=== PATIENT | female | born 1955 | race Caucasian/White ===

== ENCOUNTER 2020-12-04 14:48 | Outpatient (REF) | payer MEDICARE, MEDICAID, SELFPAY ==
--- NOTE | ~2020-12-04 | MM_ITS ---
EXAMINATION: MM SCREENING DIGITAL BREAST TOMOSYNTHESIS, BILATERAL CLINICAL INFORMATION: Screening. Asymptomatic. Benign left excisional biopsy 2012. The lifetime risk of breast cancer based on the Tyrer-Cuzick Model is 3%. COMPARISON: Mammography: 09/05/2019, 08/30/2018, 07/25/2017 TECHNIQUE: Digital breast tomosynthesis is performed in both the craniocaudal and mediolateral oblique views along with computer-aided detection (CAD). Synthesized 2D images are generated from the tomosynthesis. FINDINGS: The breasts are heterogeneously dense, which may obscure small masses (ACR BI-RADS breast composition Category c). Parenchymal pattern is similar to prior studies. There is no developing density or interval mass or architectural abnormality. Again, there is old scarring from prior excisional biopsy posterior upper left breast. There are no abnormal calcifications. The axilla and skin contours are unremarkable. No significant changes. MM/MM tomosynthesis screening BI IMPRESSION: No significant changes from prior studies. ASSESSMENT: BI-RADS 2: Benign RECOMMENDATION: Routine annual mammography screening. This patient's information was entered into a reminder system with a target due date for their next mammogram.
== END 2020-12-04 14:49 | disposition home or self-care (01) ==
LOC: HO.MAMMO 14:48
PROVIDERS: Visit Provider Nurse Practitioner Family
DX: Z12.31 Encounter for screening mammogram for malignant neoplasm of breast (principal)
CPT/HCPCS: 77063; 77067

== ENCOUNTER 2021-07-22 09:11 | Outpatient (REF) | payer MEDICARE, MEDICAID, SELFPAY ==
--- NOTE | 2021-07-22 16:06 | MHC.AU.AHA ---
Adult Audiological Evaluation Date of Visit: 07/22/21 Coating Line Worker Used: Mauritian- In Person Reason for Appointment: Audiological re-evaluation to monitor the status of Ms. Cleaning's hearing loss. She has a known bilateral hearing loss and uses hearing aids binaurally. She notes that the hearing aids have been too loud and she finds them bothersome. She denies any significant changes to her hearing or medical history. [place] [facility] [place] Moderately severe to profound sensorineural hearing loss bilaterally. Medical History: Medical History: Hyperlipidemia, prediabetes, osteopenia Medication List: Calcium, Vitamin D3, Fluticasone propionate, Loratadine 10 mg, Crestor 10 mg, acetaminophen 500 mg, guaifenesin/dextromethorphan Hearing Instrument History- Right Ear: Guest History Clerk: [employer] Model: Eloxx0-SP [employer] Serial Number: [id number] Battery Size: 13 Repair Warranty: 02/23/2019 Loss and Damage Warranty: 02/23/2019 Dispensed By: [facility] Date of Fittin12/15/2016 Hearing Instrument History- Left Ear: Guest History Clerk: [employer] Model: Eloxx0-SP [employer] Serial Number: [id number] Battery Size: 13 Warranty: 02/23/2019 Loss and Damage Warranty: 02/23/2019 Dispensed By: [facility] Date of Fittin12/15/2016 Otoscopy: Right Ear: Unremarkable Left Ear: Unremarkable Hearing Evaluation: Transducer(s) Used: Insert Earphones, Bone Conduction Method: Conventional Audiometry Stimuli Used: Pure Tones Right Ear: Description of Hearing: Moderately-severe to profound mixed hearing loss from 125-8000 Hz. Left Ear: Description of Hearing: Moderately-severe to profound mixed hearing loss from 125-8000 Hz. Speech Recognition Threshold (SRT): Method Used: Recorded Lists Stimuli Used: Mauritian Trisyllable Words Right Ear: 85 dBHL Left Ear: 75 dBHL Word Discrimination: Method: Recorded Lists Word Lists Used: Lista Bisil?bica (Mauritian) Right Ear: 92% at 100 dBHL Left Ear: 44% at 100 dBHL Comparison: Compared to the most recent evaluation: Hearing is stable. Recommendations: Audiological re-evaluation in one year. Hearing aid maintenance performed today. Hearing aid(s) reprogrammed with updated test results. Ms. Cleaning inquired about getting new hearing aids. Advised that she is not eligible for new hearing aids until December 2021. At that time she is welcome to return for a hearing aid consultation to discuss new hearing aid options. Diagnosis: Primary Diagnosis: H90.6 Mixed Hearing Loss, Bilateral Services Performed: Comprehensive Audiological Evaluation (CPT 50309) Signature: Provider: Semaj Vera, CCC-A
== END 2021-07-22 09:12 | disposition home or self-care (01) ==
LOC: HO.SH 09:11
PROVIDERS: Visit Provider Nurse Practitioner Family
DX: H90.6 Mixed conductive and sensorineural hearing loss, bilateral (principal)
CPT/HCPCS: 92557; 92593; V5266

== ENCOUNTER 2021-12-10 12:03 | Outpatient (REF) | payer MEDICARE, MEDICAID, SELFPAY ==
--- NOTE | ~2021-12-10 | MM_ITS ---
EXAMINATION: MM SCREENING DIGITAL BREAST TOMOSYNTHESIS, BILATERAL CLINICAL INFORMATION: Screening. Asymptomatic. Status post benign excisional biopsy of the left breast. The lifetime risk of breast cancer based on the Tyrer-Cuzick Model is 3.5%. COMPARISON: Mammography: April 05, 2021 and studies dating back to August 11, 2012 TECHNIQUE: Digital breast tomosynthesis is performed in both the craniocaudal and mediolateral oblique views along with computer-aided detection (CAD). Synthesized 2D images are generated from the tomosynthesis. FINDINGS: The breasts are heterogeneously dense, which may obscure small masses (ACR BI-RADS breast composition Category c). There are no new significant masses, abnormal calcifications, or other abnormalities. Stable architectural distortion about the left breast from previous benign biopsy again noted. MM/MM tomosynthesis screening BI IMPRESSION: There are no significant changes from prior study. ASSESSMENT: BI-RADS 2: Benign RECOMMENDATION: Routine annual mammography screening. This patient's information was entered into a reminder system with a target due date for their next mammogram.
== END 2021-12-10 12:04 | disposition home or self-care (01) ==
LOC: HO.MAMMO 12:03
PROVIDERS: Visit Provider Nurse Practitioner Family
DX: Z12.31 Encounter for screening mammogram for malignant neoplasm of breast (principal)
CPT/HCPCS: 77063; 77067

== ENCOUNTER 2022-12-16 11:31 | Outpatient (REF) | payer MEDICARE, MEDICAID, SELFPAY ==
--- NOTE | ~2022-12-16 | MM_ITS ---
EXAMINATION: MM SCREENING DIGITAL BREAST TOMOSYNTHESIS, BILATERAL CLINICAL INFORMATION: Screening. Asymptomatic. Prior benign left excisional biopsy, 2013. The lifetime risk of breast cancer based on the Tyrer-Cuzick Model is 4%. COMPARISON: Multiple prior studies, including most recent 12/10/2021. TECHNIQUE: Digital breast tomosynthesis is performed in both the craniocaudal and mediolateral oblique views along with computer-aided detection (CAD). Synthesized 2D images are generated from the tomosynthesis. FINDINGS: The breasts are heterogeneously dense, which may obscure small masses (ACR BI-RADS breast composition Category c). Parenchymal pattern is similar to prior studies. There is old postsurgical scarring posterior upper left breast similar to prior studies. Scattered bilateral minor asymmetries are stable. No focal mass or architectural abnormality or developing density. No abnormal calcifications. The axilla and skin contours are unremarkable. MM/MM tomosynthesis screening BI IMPRESSION: No mammographic evidence of malignancy. ASSESSMENT: BI-RADS 2: Benign RECOMMENDATION: Routine annual mammography screening. This patient's information was entered into a reminder system with a target due date for their next mammogram.
== END 2022-12-16 11:32 | disposition home or self-care (01) ==
LOC: HO.MAMMO 11:31
PROVIDERS: Visit Provider Nurse Practitioner Family
DX: Z12.31 Encounter for screening mammogram for malignant neoplasm of breast (principal)
CPT/HCPCS: 77063; 77067

== ENCOUNTER 2023-04-12 10:15 | Outpatient (REF) | payer MEDICARE, MEDICAID, SELFPAY ==
[2023-04-12 11:41] LABS: MANUAL DIFF FLAG NO
[2023-04-12 11:57] LABS: Basophils Absolute Auto 0.1 X10*3/uL (0.0-0.2); Basophils Percent Auto 0.9 % (0-2); Eosinophils Absolute Auto 0.1 X10*3/uL (0.0-0.4); Eosinophils Percent Auto 2.5 % (0-4); Hematocrit 39.2 % (37.0-47.0); Hemoglobin 12.4 g/dl (12.0-16.0); Imm Gran Abs Auto 0.01 X10*3/uL (0.00-0.03); Imm Gran Pct Auto 0.2 % (0.0-0.4); Lymphocytes Absolute Auto 2.6 X10*3/uL (1.2-4.9); Mean Corpuscular HGB Conc 31.6 g/dl (31.0-35.0); Mean Corpuscular Hemoglobin 31.9 pg (27.0-33.0); Mean Corpuscular Volume 100.8 fL (80.0-98.0); Mean Platelet Volume 10.4 fL (9.4-12.3); Monocytes Absolute Auto 0.3 X10*3/uL (0.1-1.2); Monocytes Percent Auto 5.5 % (2-11); Neutrophils Absolute Auto 2.6 x10*3/uL (2.0-8.3); Neutrophils Percent Auto 45.9 % (45-73); Platelet Count 249 X10*3/uL (160-400); Red Blood Count 3.89 X10*6/uL (4.20-5.50); White Blood Count 5.7 X10*3/uL (4.8-10.8)
[2023-04-12 12:07] LABS: Estimated Average Glucose 120 mg/dL; Hemoglobin A1c % 5.8 % (<6.0)
[2023-04-12 12:24] LABS: Alanine Aminotransferase 41 U/L (0-31); Albumin Level 4.4 g/dL (3.5-5.0); Alkaline Phosphatase 94 U/L (39-117); Anion Gap 11 (12-20); Aspartate Amino Transferase 41 U/L (5-31); Bilirubin Total 0.5 mg/dL (0.0-1.0); Blood Urea Nitrogen 9 mg/dL (9-16); Calcium 9.8 mg/dL (8.4-10.2); Carbon Dioxide 28 mmol/L (22-29); Chloride 107 mmol/L (96-108); Cholesterol 256 mg/dL (<200); Estimated Glomerular Filt Rate > 60; Glucose Random 104 mg/dL (60-115); HDL Cholesterol 64 mg/dL (>40); LDL Cholesterol Calculated 168 mg/dL (<100); Potassium 4.1 mmol/L (3.3-5.1); Sodium 142 mmol/L (135-145); Total Protein 8.7 g/dL (6.5-8.0); Triglycerides 124 mg/dL (<150)
[2023-04-12 12:38] LABS: Syphilis Screen Nonreactive (Nonreactive)
[2023-04-12 12:42] LABS: TSH reflex Free T4 1.44 uIU/mL (0.32-4.0)
[2023-04-12 12:49] LABS: Folate 9.3 ng/mL (> or = 4.0); Vitamin B12 617 pg/mL (200-900)
[2023-04-12 13:04] LABS: Creatinine Urine 171.65 mg/dL; Microalbum/Creatinine Ratio Ur 23.8 ug/mg cr (<30)
[2023-04-12 13:38] LABS: CT PCR NOT DETECTED (Not Detect.); NG PCR NOT DETECTED (Not Detect.)
[2023-04-13 08:28] LABS: ~HepC Num1 0.14 S/CO (0.00-0.79); ~Hepatitis C Antibody Nonreactive (Nonreactive)
[2023-04-13 08:31] LABS: HBS Num1 653.75 mIU/mL (0-7.99); HBsAGNum1 0.41 S/CO (0.00-0.99); HIV AB/AG Nonreactive (Nonreactive); HIV Num 1 0.06 S/CO (0.00-0.99); Hepatitis B Core Antibody Nonreactive (Nonreactive); Hepatitis B Surface Antigen Negative (Negative); ~Hepatitis B Surface Antibody REACTIVE (Nonreactive)
[2023-04-16 11:54] LABS: VITAMIN D (1,25 OH) D3 52 pg/mL; Vit D (1,25-Dihydroxy) Total 52 pg/mL (18-72); Vitamin D (1,25 OH) D2 <8 pg/mL
== END 2023-04-12 10:16 | disposition home or self-care (01) ==
LOC: HO.HHCL 10:15
PROVIDERS: Visit Provider Student in an Organized Health Care Education/Training Program
DX: Z00.00 Encounter for general adult medical examination without abnormal findings (principal); M85.80 Other specified disorders of bone density and structure, unspecified site; E55.9 Vitamin D deficiency, unspecified; Z20.2 Contact with and (suspected) exposure to infections with a predominantly sexual mode of transmission; R73.03 Prediabetes; E78.5 Hyperlipidemia, unspecified; Z13.29 Encounter for screening for other suspected endocrine disorder; Z11.59 Encounter for screening for other viral diseases; Z72.89 Other problems related to lifestyle
CPT/HCPCS: 0353U; 80053; 80061; 82043; 82550; 82607; 82652; 82746; 83036; 84443; 85025; 86704; 86706; 86780; 86803; 87340; 87389

== ENCOUNTER 2023-04-14 19:22 | Outpatient (REF) | payer MEDICARE, MEDICAID, SELFPAY ==
[2023-04-22 07:59] LABS: HPV 16 RNA NOT DETECTED (NOT DETECTED); HPV mRNA E6/E7 rflx Detected (Not Detected)
== END 2023-04-14 19:23 | disposition home or self-care (01) ==
LOC: HO.HHCLNP 19:22
PROVIDERS: Visit Provider Advanced Practice Midwife
DX: Z01.419 Encounter for gynecological examination (general) (routine) without abnormal findings (principal)
CPT/HCPCS: 87624; 87625; 88142

== ENCOUNTER 2023-05-11 13:24 | Outpatient (REF) | payer MEDICARE, MEDICAID, SELFPAY ==
--- NOTE | ~2023-05-11 | US_ITS ---
EXAMINATION: ULTRASOUND PELVIC, COMPLETE CLINICAL INFORMATION: Enlarged ovarian veins concern for pelvic congestion. Monitor finding. COMPARISON: CT abdomen and pelvis 08/22/2019, pelvic ultrasound 08/02/2016. TECHNIQUE: Pelvic ultrasound was performed using transvaginal and transabdominal technique without spectral doppler. FINDINGS: The uterus is of normal size and echogenicity measuring 7.6 x 2.1 x 4.9 cm. The uterus appears heterogeneous. A regular homogeneous endometrium is identified measuring 0.3 cm in thickness. The right ovary measures 1.1 x 1.6 x 1.6 cm, volume 1.5 mL. The right ovary appears normal. The left ovary is not seen. Prominent parametrial veins bilaterally. 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 There is no pelvic free fluid. 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 These findings can be seen in asymptomatic women as well as women with signs and symptoms of pelvic congestion syndrome. There has been no significant change compared to prior.
== END 2023-05-11 13:25 | disposition home or self-care (01) ==
LOC: HO.US 13:24
PROVIDERS: PCP Student in an Organized Health Care Education/Training Program; Visit Provider Student in an Organized Health Care Education/Training Program
DX: R93.89 Abnormal findings on diagnostic imaging of other specified body structures (principal); I86.8 Varicose veins of other specified sites
CPT/HCPCS: 76830; 76856

== ENCOUNTER 2023-06-09 16:10 | Outpatient (REF) | payer MEDICARE, MEDICAID, SELFPAY | END 2023-06-09 16:11 | disposition home or self-care (01) | LOC: HO.HHCLNP 16:10 | PROVIDERS: Visit Provider Advanced Practice Midwife | DX: R87.615 Unsatisfactory cytologic smear of cervix (principal); R87.810 Cervical high risk human papillomavirus (HPV) DNA test positive | CPT/HCPCS: 88142 ==

== ENCOUNTER 2023-06-22 09:21 | Outpatient (REF) | payer MEDICARE, MEDICAID, SELFPAY ==
--- NOTE | ~2023-06-22 | XR_ITS ---
EXAMINATION: XR CHEST CLINICAL INFORMATION: Bronchitis for 2 to 3 weeks with ongoing cough with rhonchi COMPARISON: 10/22/2019 TECHNIQUE: 2 views of the chest were obtained. FINDINGS: No significant abnormality is noted involving the heart, lungs, mediastinum, bony thorax or soft tissues. Minimal left basilar atelectasis. XR/XR chest 2V IMPRESSION: No acute intrathoracic disease.
== END 2023-06-22 09:22 | disposition home or self-care (01) ==
LOC: HO.HHCX 09:21
PROVIDERS: Visit Provider Student in an Organized Health Care Education/Training Program
DX: J40 Bronchitis, not specified as acute or chronic (principal)
CPT/HCPCS: 71046

== ENCOUNTER 2023-06-23 13:27 | Outpatient (REF) | payer MEDICARE, MEDICAID, SELFPAY ==
--- NOTE | 2023-06-27 09:00 | MHC.AU.MED ---
Medical Clearance for Hearing Instrumentation Date: 06/23/23 Patient Name: Suzanne Cleaning Date of : 1955 Primary Care Provider: Ignacia Butt MD We have seen your patient on 06/23/23 and have determined that they are a candidate for amplification (See accompanying report). Specifically, they would benefit from: Hearing aid use in both ears There is a statute that addresses Medical Evaluation Requirements prior to fitting a patient with a hearing aid. According to [place] statute 265 CMR:6.03(1), (a) General. Except as provided in 265 CMR 6.03(1)(b), a hearing dog trainer shall not sell a hearing aid unless the prospective user has presented to the hearing dog trainer a written statement signed by a licensed physician that states that the patient's hearing loss has been medically evaluated and the patient may be considered a candidate for a hearing aid. The medical evaluation must have taken place within the preceding six months. Please note: Due to the [place] Statute referenced above, we cannot accept a signature other than that of a licensed physician. WAREHOUSE HANDLER and PA signatures cannot be accepted. I am in agreement with the above recommendation. There is no medical contraindication for hearing instrumentation. Physician Signature Date Physician Name (Printed)
--- NOTE | 2023-06-27 09:12 | MHC.AU.HA3 ---
Hearing Instrument Follow-Up- Binaural Date of Visit: 06/23/23 Injection Mold Tooling Technician Used: Maltese- In Person Right Ear: Bernardo, Model, Color, Serial Number: Blanca Vela B50-SP SERINAE SN: [id number] Color: Sand Beige Hospital Account Liaison Repair Warranty: 02/23/2019 Hospital Account Liaison Loss and Damage Warranty: 02/23/2019 Battery Size: 13 Earmold/Dome/CShell/SlimTip:Microsonic Unfmm-r-cfoy II full shell Dispensed By: [facility] Date of Fittin12/15/2016 Left Ear: Bernardo, Model, Color, Serial Number: Blanca Whitley0-SP SERINAE SN: [id number] Color: Sand Beige Hospital Account Liaison Repair Warranty: 02/23/2019 Hospital Account Liaison Loss and Damage Warranty: 02/23/2019 Battery Size: 13 Earmold/Dome/CShell/SlimTip: Microsonic Dgxad-y-smmt II full shell Dispensed By: [facility] Date of Fittin12/15/2016 Follow-Up Summary: Suzanne returned for routine hearing aid maintenance following updated hearing test. Cleaned both hearing aids and ear molds. Listening check demonstrated the hearing aids are functioning appropriately. Tubing still clean and flexible - Did not need to be changed. Suzanne had some difficulty inserting the helix portion of the ear mold. Did not make programming changes as hearing thresholds are stable. However, discussed cochlear implant due to significant decrease in speech discrimination ability. Suzanne is not interested in a CI at this time. She opted to pursue new hearing aids due to age of current pair with realistic expectations given limitations of hearing aids. Recommendations: Hearing instrument follow-up or maintenance as needed. Please contact our clinic with any questions or concerns. Diagnosis Code(s): Primary Diagnosis: H90.3 Bilateral Sensorineural Hearing Loss Signature: Provider: Karyn Pierson, [facility]
--- NOTE | 2023-06-27 09:53 | MHC.AU.HA1 ---
Hearing Aid Evaluation Date of Visit: 06/23/23 State Trooper Used: Khmer- In Person Historical Information: Description of Hearing: Severe to profound sensorineural hearing loss, bilaterally Current personal amplification information: Phonak Dane B50-SP BTEs fit December 2016 Summary: Suzanne is ready to pursue new hearing aids due to the age of her current pair. Discussed a cochlear implant due to poor speech discrimination ability; however, Suzanne is not interested in a CI at this time. Explained limitations of hearing aids given severity of hearing loss and poor speech discrimination. Will stay with same crop picker and style of hearing aid in ultra power version with larger battery. Will change to half shell ear mold due to difficulty inserting helix portion of current full shell. Hearing Aid Prescription: Based on the individual?s shared listening needs, communication environments, dexterity, desire for connectivity, and personal preferences, the following prescription for amplification has been made: Right ear: Make, Model, Color: Phonak Carmen L70-UP Color: Sand Beige Battery Size: 675 Type of Earmold/Dome/CShell/SlimTip: Microsonic M35 half shell Left ear: Left ear prescription to be same as Right Hearing Aid above: Make, Model, Color: Phonak Carmen L70-UP Color: Sand Beige Battery Size: 675 Type of Earmold/Dome/CShell/SlimTip: Microsonic M35 half shell Plan of Care: Patient wishes to purchase hearing aids as prescribed Action Taken/Action Needed: Earmold Impressions Taken without incident (in hold drawer). Medical Clearance to be requested from PCP/ENT. Hearing Instrument Fitting to be scheduled when materials arriv Primary Diagnosis: H90.3 Bilateral Sensorineural Hearing Loss Signature: Provider: Karyn Pierson, [facility]
== END 2023-06-23 13:28 | disposition home or self-care (01) ==
LOC: HO.SH 13:27
PROVIDERS: Visit Provider Student in an Organized Health Care Education/Training Program
DX: Z01.118 Encounter for examination of ears and hearing with other abnormal findings (principal); Z46.1 Encounter for fitting and adjustment of hearing aid; H90.3 Sensorineural hearing loss, bilateral
CPT/HCPCS: 92557; 92591; 92593; 99499; V5275

== ENCOUNTER 2023-08-16 10:20 | Outpatient (REF) | payer MEDICARE, MEDICAID, SELFPAY ==
[2023-08-16 11:05] LABS: MANUAL DIFF FLAG NO
[2023-08-16 11:07] LABS: Basophils Absolute Auto 0.1 X10*3/uL (0.0-0.2); Basophils Percent Auto 0.8 % (0-2); Eosinophils Absolute Auto 0.2 X10*3/uL (0.0-0.4); Eosinophils Percent Auto 2.8 % (0-4); Hematocrit 38.9 % (37.0-47.0); Hemoglobin 12.6 g/dl (12.0-16.0); Lymphocytes Absolute Auto 2.6 X10*3/uL (1.2-4.9); Lymphocytes Percent Auto 42.7 % (20-40); Mean Corpuscular HGB Conc 32.4 g/dl (31.0-35.0); Mean Corpuscular Volume 98.7 fL (80.0-98.0); Monocytes Absolute Auto 0.3 X10*3/uL (0.1-1.2); Monocytes Percent Auto 5.2 % (2-11); Neutrophils Percent Auto 48.5 % (45-73); Platelet Count 215 X10*3/uL (160-400); Red Blood Count 3.94 X10*6/uL (4.20-5.50); Red Cell Distribution Width 12.9 % (11.0-16.0); White Blood Count 6.2 X10*3/uL (4.8-10.8)
[2023-08-16 12:14] LABS: Alanine Aminotransferase 38 U/L (0-31); Albumin Level 4.6 g/dL (3.5-5.0); Alkaline Phosphatase 101 U/L (39-117); Anion Gap 14 (12-20); Aspartate Amino Transferase 36 U/L (5-31); Bilirubin Total 0.5 mg/dL (0.0-1.0); Blood Urea Nitrogen 6 mg/dL (9-16); Calcium 9.9 mg/dL (8.4-10.2); Carbon Dioxide 27 mmol/L (22-29); Chloride 107 mmol/L (96-108); Cholesterol 179 mg/dL (<200); Estimated Glomerular Filt Rate > 60; Glucose Random 102 mg/dL (60-115); HDL Cholesterol 64 mg/dL (>40); LDL Cholesterol Calculated 94 mg/dL (<100); Potassium 3.7 mmol/L (3.3-5.1); Sodium 144 mmol/L (135-145); Total Protein 8.6 g/dL (6.5-8.0); Triglycerides 105 mg/dL (<150)
== END 2023-08-16 10:21 | disposition home or self-care (01) ==
LOC: HO.HHCL 10:20
PROVIDERS: Visit Provider Student in an Organized Health Care Education/Training Program
DX: R74.8 Abnormal levels of other serum enzymes (principal); E78.5 Hyperlipidemia, unspecified
CPT/HCPCS: 36415; 80053; 80061; 82550; 85025

== ENCOUNTER 2023-08-19 15:11 | Outpatient (REF) | payer MEDICARE, MEDICAID, SELFPAY ==
--- NOTE | 2023-08-19 15:47 | MHC.AU.HA2 ---
Hearing Instrument Fitting- Adult- Binaural Date of Visit: 08/19/23 Hearing Instruments Dispensed: Right Ear: Make, Model, Color, Serial Number: Blanca Morales L70-UP SN: [id number] Color: Sand Beige [employer] Repair Warranty: 09/28/2026 [employer] Loss and Damage Warranty: 09/28/2026 [employer] Service Plan: 08/19/2024 Battery Size: 675 Earmold/Dome/CShell/SlimTip: Microsonic M35 half shell Left Ear: Make, Model, Color, Serial Number: Blanca Morales L70-UP SN: [id number] Color: Sand Beige [employer] Repair Warranty: 09/28/2026 [employer] Loss and Damage Warranty: 09/28/2026 [employer] Service Plan: 08/19/2024 Battery Size: 675 Earmold/Dome/CShell/SlimTip: Microsonic M35 half shell Summary of Fitting: Ran feedback analyzer and real ear measures. Good match to target until 2 kHz, otherwise limited by feedback curve >2 kHz. Increased overall gain in right hearing aid slightly due to perceived balance. Reviewed care and use including changing battery, turning on/off, and volume control use. As a previous hearing aid user, Suzanne was familiar with general maintenance. Suzanne has her old hearing aids and ear molds to keep as back up. Recommendations: A hearing instrument follow-up was scheduled. Diagnosis Code(s): Primary Diagnosis: H90.3 Bilateral Sensorineural Hearing Loss Signature: Provider: Karyn Pierson, [facility]
== END 2023-08-19 15:12 | disposition home or self-care (01) ==
LOC: HO.HAP 15:11
PROVIDERS: Visit Provider Student in an Organized Health Care Education/Training Program
DX: Z46.1 Encounter for fitting and adjustment of hearing aid (principal); H90.3 Sensorineural hearing loss, bilateral
CPT/HCPCS: V5011; V5020; V5160; V5261; V5264; V5266

== ENCOUNTER 2023-09-02 13:08 | Outpatient (REF) | payer MEDICARE, MEDICAID, SELFPAY ==
--- NOTE | 2023-09-05 08:03 | MHC.AU.HA3 ---
Hearing Instrument Follow-Up- Binaural Date of Visit: 09/02/23 Right Ear: Bernardo, Model, Color, Serial Number: Blanca Morales L70-UP SN: [id number] Color: Sand Beige [employer] Worker Repair Warranty: 09/28/2026 [employer] Worker Loss and Damage Warranty: 09/28/2026 [facility] Service Plan: 08/19/2024 Battery Size: 675 Earmold/Dome/CShell/SlimTip:Microsonic M35 half shell Dispensed By: [facility] Date of Fittin08/19/2023 Left Ear: Bernardo, Model, Color, Serial Number: Blanca Morales L70-UP SN: [id number] Color: Sand Beige [employer] Worker Repair Warranty: 09/28/2026 [employer] Worker Loss and Damage Warranty: 09/28/2026 [facility] Service Plan: 08/19/2024 Battery Size: 675 Earmold/Dome/CShell/SlimTip: Microsonic M35 half shell Dispensed By: [facility] Date of Fittin08/19/2023 Follow-Up Summary: Suzanne reported that overall she is doing well with the hearing aids. She had no questions/concerns at this time. Data logging showed about 3.5 hours per day on right hearing aid and <1 hour per day on left hearing aid. Tried to inquire about reason not using left hearing aid; however, Suzanne did not have a specific reason. Also difficult to obtain detailed description of sound quality. She did not want programming adjustments, ear mold is comfortable, no feedback, etc. Encouraged more consistent use. Advised of need for periodic tubing changes. Recommendations: Hearing instrument maintenance in 6 months, or sooner if needed. Please contact our clinic with any questions or concerns. Diagnosis Code(s): Primary Diagnosis: H90.3 Bilateral Sensorineural Hearing Loss Signature: Provider: Karyn Pierson, [facility]
== END 2023-09-02 13:09 | disposition home or self-care (01) ==
LOC: HO.HAP 13:08
PROVIDERS: Visit Provider Student in an Organized Health Care Education/Training Program
DX: Z13.89 Encounter for screening for other disorder (principal)

== ENCOUNTER → 2023-12-22 10:30 | Outpatient (BNV) | payer MEDICARE, MEDICAID, SELFPAY | PROVIDERS: PCP Student in an Organized Health Care Education/Training Program; Visit Provider Radiology Diagnostic Radiology | DX: Z12.31 Encounter for screening mammogram for malignant neoplasm of breast (principal) | CPT/HCPCS: 77063; 77067 ==

== ENCOUNTER 2023-12-22 10:46 | Outpatient (REF) | payer MEDICARE, MEDICAID, SELFPAY ==
--- NOTE | ~2023-12-22 | MM_ITS ---
EXAMINATION: MM SCREENING DIGITAL BREAST TOMOSYNTHESIS, BILATERAL CLINICAL INFORMATION: Screening. Asymptomatic. The patient has history of prior excisional biopsy of the left breast for benign disease. COMPARISON: Mammography: This study is compared with prior exams dating back to 2019. TECHNIQUE: Digital breast tomosynthesis is performed in both the craniocaudal and mediolateral oblique views along with computer-aided detection (CAD). Synthesized 2D images are generated from the tomosynthesis. FINDINGS: The breasts are heterogeneously dense, which may obscure small masses (ACR BI-RADS breast composition Category c). There are no significant masses, abnormal calcifications, or other abnormalities. There is architectural change in the left breast from prior excision for benign disease. MM/MM tomosynthesis screening BI IMPRESSION: No mammographic evidence of malignancy. ASSESSMENT: BI-RADS BI-RADS 2 - Benign Findings RECOMMENDATION: Routine annual mammography screening. 1 year F/U This examination should not preclude the clinical evaluation of a suspicious palpable abnormality. This patient's information was entered into a reminder system with a target due date for their next mammogram.
--- NOTE | ~2023-12-22 | MM_ITS ---
EXAMINATION: BONE DENSITOMETRY CLINICAL INDICATION: Menopausal state. COMPARISON: Baseline BD dated 07/23/2016. TECHNIQUE: Using a [employer] DXA System (software version: 13.1) manufactured by [employer], dual-energy x-ray absorptiometry was performed of the lumbar spine and left hip. The images are of good technical quality. Summary results are attached. FINDINGS: LEFT FEMUR, NECK: Current: BMD 0.770 g/cm2, Z-score -0.2, T-score -1.9, osteopenia. Baseline: BMD 0.833 g/cm2. LEFT FEMUR, TOTAL: Current: BMD 0.847 g/cm2, Z-score 0.3, T-score -1.3, osteopenia, 6.0% decrease from baseline (<5% change is not significant). Baseline: BMD 0.901 g/cm2. AP SPINE L1-L4: Current: BMD 0.892 g/cm2, Z-score -0.6, T-score -2.4, osteopenia, 8.5% decrease from baseline (<5% change is not significant). Baseline: BMD 0.975 g/cm2. IDENTIFIED RISK FACTORS: Menopause, recurrent falls. HISTORY OF FRACTURE: None listed. MEDICATIONS: Calcium. MM/XR DEXA axial skeleton IMPRESSION: 1. DIAGNOSIS: Osteopenia based on the lowest T-score value of -2.4 in the lumbar spine applying World Health Organization criteria. 2. 10-YEAR FRACTURE RISK PREDICTION, FRAX: Major osteoporotic fracture (clinical spine, forearm, hip or shoulder) 6.6%. Hip fracture 1.2%. 3. Treatment Recommendations: NOF guidelines recommend consideration for treatment in postmenopausal women and men age 50 and older presenting with the following: -A hip or vertebral (clinical or morphometric) fracture. -T-score less than or equal to -2.5 at the femoral neck or spine after appropriate evaluation to exclude secondary causes. -Low bone mass at the hip or spine and a 10-year fracture probability by FRAX of greater than or equal to 3% for hip fracture or greater than or equal to 20% for major osteoporotic fracture based on the [place] adapted WHO algorithm. 4. Other Recommendations: All treatment decisions require clinical judgment and consideration of individual patient factors, including patient preferences, comorbidities, previous drug use, risk factors not captured in the FRAX model (e.g. frailty, falls, vitamin D deficiency, increased bone turnover, interval significant decline in bone density) and possible under or overestimation of fracture risk by FRAX. Additional medical evaluation for secondary cause of low bone mineral density may be appropriate. FUTURE SCAN RECOMMENDATION: People with diagnosed cases of osteoporosis or at high risk for fracture should have regular bone mineral density tests. For patients eligible for Medicare, routine testing is allowed once every 2 years. The testing frequency can be increased to one year for patients who have rapidly progressing disease, those who are receiving or discontinuing medical therapy to restore bone mass, or have additional risk factors.
== END 2023-12-22 10:47 | disposition home or self-care (01) ==
LOC: HO.MAMMO 10:46
PROVIDERS: PCP Student in an Organized Health Care Education/Training Program; Visit Provider Student in an Organized Health Care Education/Training Program
DX: Z12.31 Encounter for screening mammogram for malignant neoplasm of breast (principal); Z13.820 Encounter for screening for osteoporosis; Z78.0 Asymptomatic menopausal state; M85.80 Other specified disorders of bone density and structure, unspecified site
CPT/HCPCS: 77063; 77067; 77080

== ENCOUNTER 2024-05-24 08:50 | Outpatient (REF) | payer MEDICARE, MEDICAID, SELFPAY ==
[2024-05-24 11:39] LABS: Hematocrit 38.3 % (37.0-47.0); Hemoglobin 12.4 g/dl (12.0-16.0); Mean Corpuscular HGB Conc 32.4 g/dl (31.0-35.0); Mean Corpuscular Hemoglobin 32.4 pg (27.0-33.0); Mean Platelet Volume 10.4 fL (9.4-12.3); Platelet Count 221 X10*3/uL (160-400); Red Blood Count 3.83 X10*6/uL (4.20-5.50); Red Cell Distribution Width 13.2 % (11.0-16.0)
[2024-05-24 12:02] LABS: Estimated Average Glucose 123 mg/dL; Hemoglobin A1C 122.7218 umol/L; Hemoglobin A1c % 5.9 % (<6.0); Total Hemoglobin (HGBA1C) 3008.4051 umol/L
[2024-05-24 12:12] LABS: Alanine Aminotransferase 34 U/L (0-31); Albumin Level 4.5 g/dL (3.5-5.0); Alkaline Phosphatase 89 U/L (39-117); Anion Gap 12 (12-20); Aspartate Amino Transferase 33 U/L (5-31); Bilirubin Total 0.4 mg/dL (0.0-1.0); Blood Urea Nitrogen 9 mg/dL (9-16); C Reactive Protein 0.11 mg/dL (< or = 0.50); Calcium 9.7 mg/dL (8.4-10.2); Carbon Dioxide 27 mmol/L (22-29); Chloride 106 mmol/L (96-108); Cholesterol 154 mg/dL (<200); Estimated Glomerular Filt Rate > 60; Glucose Random 106 mg/dL (60-115); HDL Cholesterol 59 mg/dL (>40); LDL Cholesterol Calculated 71 mg/dL (<100); Potassium 4.3 mmol/L (3.3-5.1); Sodium 141 mmol/L (135-145); Total Protein 8.2 g/dL (6.5-8.0); Triglycerides 124 mg/dL (<150)
[2024-05-24 12:15] LABS: TSH reflex Free T4 0.91 uIU/mL (0.32-4.0); Vitamin D 25-OH Total 67.7 ng/mL (>30)
[2024-05-24 12:24] LABS: Erythrocyte Sedimentation Rate 21 MM/HR (0-20); Syphilis Screen Nonreactive (Nonreactive)
[2024-05-24 12:28] LABS: Microalbum/Creatinine Ratio Ur 32.5 ug/mg cr (<30)
[2024-05-24 12:31] LABS: Folate 7.2 ng/mL (> or = 4.0); HBS Num1 503.32 mIU/mL (0-7.99); HBc Num1 0.17 S/CO (0.00-0.79); HBsAGNum1 0.28 S/CO (0.00-0.99); HIV AB/AG Nonreactive (Nonreactive); HIV Num 1 0.05 S/CO (0.00-0.99); Hepatitis B Core Antibody Nonreactive (Nonreactive); Hepatitis B Surface Antigen Negative (Negative); Vitamin B12 563 pg/mL (200-900); ~Hepatitis B Surface Antibody REACTIVE (Nonreactive); ~Hepatitis C Antibody Nonreactive (Nonreactive)
[2024-05-24 14:57] LABS: CT PCR NOT DETECTED (Not Detect.); NG PCR NOT DETECTED (Not Detect.)
[2024-05-30 11:49] LABS: ANA Pattern 2 Nuclear, Homogeneous; Anti Nuclear Antibody Pattern Nuclear, Speckled; Anti Nuclear Antibody Screen POSITIVE (NEGATIVE)
== END 2024-05-24 08:51 | disposition home or self-care (01) ==
LOC: HO.HHCL 08:50
PROVIDERS: Visit Provider Student in an Organized Health Care Education/Training Program
DX: Z00.00 Encounter for general adult medical examination without abnormal findings (principal); R74.8 Abnormal levels of other serum enzymes; Z11.59 Encounter for screening for other viral diseases; M80.072A Age-related osteoporosis with current pathological fracture, left ankle and foot, initial encounter for fracture; Z11.3 Encounter for screening for infections with a predominantly sexual mode of transmission; Z13.1 Encounter for screening for diabetes mellitus; Z72.89 Other problems related to lifestyle
CPT/HCPCS: 36415; 80053; 80061; 82043; 82306; 82570; 82607; 82746; 83036; 84443; 85027; 85652; 86038; 86039; 86140; 86704; 86706; 86780; 86803; 87340; 87389; 87491; 87591

== ENCOUNTER 2024-06-22 09:38 | Outpatient (REF) | payer MEDICARE, MEDICAID, SELFPAY | END 2024-06-22 09:39 | disposition home or self-care (01) | LOC: HO.HAP 09:38 | PROVIDERS: Visit Provider Student in an Organized Health Care Education/Training Program | DX: Z46.1 Encounter for fitting and adjustment of hearing aid (principal); H90.3 Sensorineural hearing loss, bilateral | CPT/HCPCS: V5266 ==

== ENCOUNTER 2025-01-18 10:44 | Outpatient (REF) | payer MEDICARE, MEDICAID, SELFPAY ==
--- OUTSIDE RECORDS SUMMARY | 2025-01-18 11:35 | XMS_ITS | Encounter Summary ---
Author Organization [employer] Address [address] [place] [address] Care Team Providers Care Echo Vascular Tech Name Role Phone Ignacia Gillespie MD Primary Care Pro vider Encounter Details Date Type Department Care Team ([facility] st Contact Info) Description 08/16/2024 Orders Only [facility] [address] [place] [address] Provider, MD Melanie Social History Tobacco Use Types Packs/Day Years Used Date Smoking Tobacco: Never Passive Smoke Exposure: Never Smokeless Tobacco: Never Alcohol Use Standard Drinks/Week Comments Not Currently 0 (1 standard drink = 0.6 oz pur e alcohol) Depression Answer Date Recorded Patient Health Questionnaire-9 Score 0 05/30/2024 Patient Health Questionnaire-9 Score 0 05/30/2024 Last PHQ-9: Questionnaire Data Not on file 1 Housing Stability Answer Date Recorded What is your housing situation today? I have cliffordhenrietta myers 06/07/[address] you li ve. Do you have problems with any of the following? None of the above 06/07/2023 Food Insecurity Answer Date Recorded Within the past 12 months, y ou worried that your food would run out before you got money to buy more: Never True 06/07/2023 Within the past 12 months,th e food you bought just didn't last and you didn't have enough money to get more: Never True Transportation Answer Date Recorded In the past 12 months, has l ack of transportation kept you from medical appts, meetings, work or from getting things needed for daily living? No 06/07/2023 Utilities Answer Date Recorded In the past 12 months, has t he electric, gas, oil or water company threatened to shut off services in your home? No 06/07/2023 Depression Answer Date Recorded Patient Health Questionnaire-2 Score 0 05/30/2024 Internet Access Answer Date Recorded Internet Access Q1 No 04/16/2024 Internet Access Q2 I do not want or need it 09/2023 Comments No Sex and Gender Information Value Date Recorded Sex Assigned at Female 06/14/2022 10:15 AM EDT Legal Sex Female 10:15 AM EDT Gender Identity Female 06/14/2022 10:15 AM EDT Sexual Orientation Straight 03/28/2023 2: 45 PM EDT documented as of this encounter Plan of Treatment Upcoming Encounters Date Type Department Care Team (Late st Contact Info) Description 03/18/2025 1:00 PM EDT Office Visit [facility] [address] [place] [phone] Ignacia Gillespie MD [address] [place] [phone] documented as of this encounter Procedures Procedure Name Priority Date/Time Associated Diagnosis Comments SURGICAL PATHOLOGY Routine 08/14/2024 1:51 PM EST documented in this encounter Results * Surgical Pathology (08/14/2024 1:51 PM EST) us Historical Provider LAB PATHOLOGY ORDERABLES Final Result documented in this encounter Visit Diagnoses Not on filedocumented in this encounter Additional Health Concerns Assessment Noted Time PHQ-9 Depression Total Score: 0 05/30/20 24 12:23 PM EDT documented as of this encounter Care Teams Echo Vascular Tech Relationship Specialty Start Date End Date Ignacia Gillespie MD [address] [place] [address] [phone] PCP - General Internal Medicine 01/19/23 documented as of this encounter
== END 2025-01-18 10:45 | disposition home or self-care (01) ==
LOC: HO.MAMMO 10:44
PROVIDERS: Visit Provider Student in an Organized Health Care Education/Training Program
DX: Z12.31 Encounter for screening mammogram for malignant neoplasm of breast (principal)
CPT/HCPCS: 77063; 77067

== ENCOUNTER → 2025-01-18 11:00 | Outpatient (BNV) | payer MEDICARE, MEDICAID, SELFPAY | PROVIDERS: Visit Provider Internal Medicine | DX: Z12.31 Encounter for screening mammogram for malignant neoplasm of breast (principal) | CPT/HCPCS: 77063; 77067 ==

== ENCOUNTER 2025-07-09 09:47 | Outpatient (REF) | payer MEDICARE, MEDICAID, SELFPAY ==
--- NOTE | ~2025-07-09 | XR_ITS ---
EXAMINATION: XR KNEE, LEFT CLINICAL INFORMATION: 5 mo of ongoing pain in left knee COMPARISON: None available. TECHNIQUE: Three views of the left knee. FINDINGS: There is no joint effusion. There are small enthesophytes involving superior patella and tibial tuberosity. Medial intercondylar tubercle is peaked. Minute marginal osteophyte is visible along the medial tibial plateau and notch side of the medial femoral condyle. There are small marginal osteophytes involving patella. XR/XR knee LT 3V IMPRESSION: Subtle changes of osteoarthritis. Electronically signed by: Eligio Reyez MD 07/09/2025 12:24 PM SUDHIR KHOURY
--- NOTE | ~2025-07-09 | XR_ITS ---
EXAMINATION: XR HIP, LEFT CLINICAL INFORMATION: 5 mo of ongoing pain in left hip COMPARISON: None available. TECHNIQUE: AP and frog-leg lateral views of the left hip. FINDINGS: There is mild axial joint space narrowing. There are marginal osteophyte involving the acetabulum. No other degenerative changes are evident in the left hip joint. There is no visible fracture. Mild degenerative irregularity is within the left SI joint. XR/XR hip LT min 2V IMPRESSION: Mild degenerative changes are evident in the left hip and SI joints. Electronically signed by: Eligio Reyez MD 07/09/2025 12:22 PM SUDHIR KHOURY
--- OUTSIDE RECORDS SUMMARY | 2025-07-09 11:29 | XMS_ITS | Encounter Summary ---
Author Organization [employer] Address [address] [facility] 7 [place] [address] Care Team Providers Care Developer Relations Manager Name Role Phone Ignacia Gillespie MD Primary Care Pro vider Reason for Visit * Reason Comments Pre-visit Planning SDOH Screening negat dora and Tobacco screening negative Encounter Details Date Type Department Care Team ([facility] st Contact Info) Description 07/04/2025 Patient Outreach [facility] [address] [place] [address] Ignacia Gillespie MD [address] [place] [address] Pre-visit Planning (SDOH Screening negative and Tobacco screening negative) Social History Tobacco Use Types Packs/Day Years [...] is your housing situation today? I have clifford myers 07/04/[address] you li ve. Do you have problems with any of the following? None of the above 07/04/2025 Food Insecurity Answer Date Recorded Within the past 12 months, y ou worried that your food would run out before you got money to buy more: Never True 07/04/2025 Within the past 12 months,th e food you bought just didn't last and you didn't have enough money to get more: Never True Transportation Answer Date Recorded In the past 12 months, has l ack of transportation kept you from medical appts, meetings, work or from getting things needed for daily living? No 07/04/2025 Utilities Answer Date Recorded In the past 12 months, has t he electric, gas, oil or water company threatened to shut off services in your home? No 07/04/2025 Depression Answer Date Recorded Patient Health Questionnaire-2 Score 0 05/30/2024 Internet Access Answer Date Recorded Internet Access Q1 Yes 07/04/2025 Internet Access Q2 Not on file 07/04/2025 Comments No Sex and Gender Information Value Date Recorded Sex Assigned at Female 06/14/2022 10:15 AM EDT Legal Sex Female 10:15 AM EDT Gender Identity Female 06/14/2022 10:15 AM EDT Sexual Orientation Straight 03/28/2023 2: 45 PM EDT documented as of this encounter Progress Notes * Yessenia Enrique - 07/04/2025 10:36 AM EST CC Yessenia Pham placed successful outbound call to patient for pre-visit planning. Patient name and confirmed. Patient confirms appt date and time, and has transportation arrangements. Biggest concern for appointment at this time is no concerns. Patient advised to bring to appointment a photo id and insurance card. Appropriate screenings completed in anticipation of appointment. documented in this encounter Plan of Treatment Upcoming Encounters Date Type Department Care Team (Late st Contact Info) Description 07/17/2025 9:45 AM EST Office Visit [facility] [address] [place] [phone] Ignacia Gillespie MD [address] [place] [address] documented as of this encounter Visit Diagnoses Not on filedocumented in this encounter Additional Health Concerns Assessment Noted Time PHQ-9 Depression Total Score: 0 05/30/20 24 12:23 PM EDT documented as of this encounter Care Teams Developer Relations Manager Relationship Specialty Start Date End Date Ignacia Gillespie MD [address] [place] [phone] PCP - General Internal Medicine 01/19/23 documented as of this encounter
--- OUTSIDE RECORDS SUMMARY | 2025-07-09 11:29 | XMS_ITS | Encounter Summary ---
Author Organization [employer] Address [address] [facility] 7 [place] [address] Care Team Providers Care It Data Architect Name Role Phone Ignacia Gillespie MD Primary Care Pro vider Reason for Visit * Reason Onset Date Comments Appointment Request 04/24/2025 Encounter Details Date Type Department Care Team ([facility] st Contact Info) Description 04/24/2025 Telephone [facility] [address] [place], [place] [phone] Ignacia Gillespie MD [address] [place] [address] Appointment Request Social History Tobacco Use Types Packs/Day Years [...] housing situation today? I have clifford myers 06/07/[address] you [...] PM EDT documented as of this encounter Miscellaneous Notes * Telephone Encounter - Alden Thapa - 04/24/2025 3:01 PM EDT Tc from pt requesting to r/s apt that was supposed to be form 03/18. Pt is currently is out of the state and wont be back until the Apr. [employer] tried to cancel apt and there is nothing available. Contact pt at [phone] documented in this encounter Plan of Treatment Upcoming Encounters Date Type Department Care Team (Late st Contact Info) Description 07/17/2025 9:45 AM EST Office Visit [facility] [address] [place] [address] Ignacia Gillespie MD [address] [place] [address] documented as of this encounter Visit Diagnoses Not on filedocumented in this encounter Additional Health Concerns Assessment Noted Time PHQ-9 Depression Total Score: 0 05/30/20 24 12:23 PM EDT documented as of this encounter Care Teams It Data Architect Relationship Specialty Start Date End Date Ignacia Gillespie MD [address] [place] [address] [phone] PCP - General Internal Medicine 01/19/23 documented as of this encounter
--- OUTSIDE RECORDS SUMMARY | 2025-07-09 11:29 | XMS_ITS | Encounter Summary ---
Author Organization [employer] Address [address] [facility] [address] 7[address] [place] [address] Care Team Providers Care Maintenance Porter Name Role Phone Ignacia Gillespie MD Primary Care Pro vider Encounter Details Date Type Department Care Team (Late st Contact Info) Description 12/13/2024 Orders Only [facility] [address] [place], [place] [phone] ProviderMelanie MD Social History Tobacco Use Types Packs/Day Years [...] Description 07/17/2025 9:45 AM EST Office Visit [facility] [address] [place] [phone] Ignacia Gillespie MD [address] [place] [phone] documented as of this encounter Procedures Procedure Name Priority Date/Time Associated Diagnosis Comments HM COLONOSCOPY Routine 08/14/2024 5:18 PM EST documented in this encounter Results * Hm Colonoscopy (08/14/2024 5:18 PM EST) Historical Provider HEALTH MAINTENANCE Final Result documented in this encounter Visit Diagnoses Not on filedocumented in this encounter Additional Health Concerns Assessment Noted Time PHQ-9 Depression Total Score: 0 05/30/20 24 12:23 PM EDT documented as of this encounter Care Teams Maintenance Porter Relationship Specialty Start Date End Date Ignacia Gillespie MD [address] [place] [phone] PCP - General Internal Medicine 01/19/23 documented as of this encounter
--- OUTSIDE RECORDS SUMMARY | 2025-07-09 11:29 | XMS_ITS | Encounter Summary ---
Author Organization [employer] Address [address] [facility] 7t [place] [address] Care Team Providers Care Functional Consultant Name Role Phone Ignacia Gillespie MD Primary Care Pro vider Encounter Details Date Type Department Care Team ([facility] st Contact Info) Description 08/16/2024 Orders Only [facility] [address] [place] [address] Provider, MD Melanie Social History Tobacco Use [...] Description 07/17/2025 9:45 AM EST Office Visit [facility] [address] [place] [phone] Ignacia Gillespie MD [address] [place] [phone] documented as of this encounter Procedures Procedure Name Priority Date/Time Associated Diagnosis Comments SURGICAL PATHOLOGY Routine 08/14/2024 1:51 PM EST documented in this encounter Results * Surgical Pathology (08/14/2024 1:51 PM EST) Historical Provider LAB PATHOLOGY ORDERABLES Final Result documented in this encounter Visit Diagnoses Not on filedocumented in this encounter Additional Health Concerns Assessment Noted Time PHQ-9 Depression Total Score: 0 05/30/20 24 12:23 PM EDT documented as of this encounter Care Teams Functional Consultant Relationship Specialty Start Date End Date Ignacia Gillespie MD [address] [place] [address] [phone] PCP - General Internal Medicine 01/19/23 documented as of this encounter
--- OUTSIDE RECORDS SUMMARY | 2025-07-09 11:30 | XMS_ITS | Clinical Summary ---
Author Organization [employer] Address [address] [facility] 7t [place] [address] Care Team Providers Care Director Talent Name Role Phone Ignacia Gillespie MD Primary Care Pro vider Allergies Active Allergy Reactions Criticality Noted Date Comments Zoster Vaccine Live Rash Low 03/14/2015 Other Reaction(s): LOCAL REACTION Medications Blood Pressure Monitor kit 1 Device Once per day. 1 kit 12/21/2023 Active cetirizine (ZyrTEC) 10 MG tablet Take 1 tablet (10 mg) by mouth Once per day. 90 tablet 03/28/2024 Active atorvastatin (Lipitor) 10 MG tablet TAKE 1 TABLET BY MOUTH EVERY MORNING 90 tablet 1 01/08/2025 Active Active Problems Problem Noted Date Diagnosed Date Knee pain 11/16/2024 Hip pain 11/16/2024 Macrocytosis without anemia 04/29/2023 Elevated CPK 04/29/2023 Ovarian varices 03/29/2023 Overview (08/16/2023): Prominent ovarian veins -CT abd/pelvis w/wo contrast 2019:Enlarged fatty liver. Diverticulosis of the colon. Prominent ovarian veins questionable for pelvic congestion. -pelvic/TV US 2015: No endometrial abnormality identified and no fluid within the endometrial canal is seen.Prominent myometrial and periuterine vessels which may be on the basis of pelvic congestion -pelvic and transvaginal US 05/11/23: Gonadal vein reflux and pelvic venous prominence. There has been no significant change compared to prior Pt is asymptomatic -will hold on further monitoring unless pt c/o symptoms Hypertension 03/29/2023 ROBIN positive 03/29/2023 Osteopenia 03/28/2023 Health care maintenance 03/28/2023 Prediabetes 11/12/2016 Bilateral hearing loss 12/03/2015 Hyperlipidemia 12/03/2015 Encounters Date Type Department Care Team Description 07/04/2025 Patient Outreach [facility] MEDICINE [address] [place] [address] Ignacia Gillespie MD Pre-visit Planning (SDOH Screening negative and Tobacco screening negative) 04/26/2025 Telephone [facility] MEDICINE [address] [place] [address] Ignacia Gillespie MD dec recall 04/24/2025 Telephone [facility] [address] [place] [address] Ignacia Gillespie MD Appointment Request from Last 3 Months Immunizations Immunization Administration Dates Next Due Hep A, Adult 01/02/2015,07/04/2014 Hep B, adult 07/21/2018,01/19/2018,12/19/2017 Influenza High-dose Quadriva lent Preservative Free 06/07/2022,04/30/2020 Influenza injectable quadriv alent IIV4 with preservative 04/28/2018,07/14/2016,05/29/2015 Influenza injectable quadriv alent preservative free 04/27/2023,07/14/2021 Influenza, High Dose Seasona l, Preservative Free 05/30/2024,07/04/2019 Influenza, IIV3, injectable 07/04/2014 Influenza, Split (incl. riky fied surface antigen) 04/21/2012 Pfizer Covid-19 Vaccine 12+ 05/30/2024, Pfizer Covid-19 Vaccine 12+ Bivalent 03/28/2023 Pneumococcal Conjugate PCV 13 02/12/2019 Pneumococcal Polysaccharide PPSV23 07/14/2021 RSV Bivalent 12/22/2023 TD (adult), 2 Lf tetanus tox oid, preservative free, adsorbed 05/21/2007,07/01/2000 Tdap 03/28/2023,10/16/2012 Zoster, live 03/12/2015 Family History Medical History Relation Name Comments Heart attack Brother gastric ca Mother breast cancer at her 59 y of age Sister Relation Name Status Comments Brother Mother Sister Social History Tobacco Use Types Packs/Day Years Used Date Smoking Tobacco: Never Passive Smoke Exposure: Never Smokeless Tobacco: Never Tobacco Cessation:Counseling Given: Not Answered Alcohol Use Standard Drinks/Week Comments Not Currently [...] Orientation Straight 03/28/2023 2: 45 PM EDT Last Filed Vital Signs Vital Sign Reading Time Taken Comments Blood Pressure 130/70 01/10/2025 1:04 PM EDT Pulse 83 01/10/2025 1:04 PM EDT Temperature 36.3 C (97.3 F) 01/10/2025 1:04 PM EDT Respiratory Rate 18 01/10/2025 1:04 PM EDT Oxygen Saturation 97% 01/10/2025 1:04 PM EDT Inhaled Oxygen Concentration - - Weight 63 kg (139 lb) 01/10/2025 1:04 PM EDT Height 154.9 cm (5' 1 ) 01/10/2025 1:04 PM EDT Body Mass Index 26.26 01/10/2025 1:04 PM EDT Plan of Treatment Upcoming Encounters Date Type Department Care Team (Late st Contact Info) Description 07/17/2025 9:45 AM EST Office Visit [facility] MEDICINE [address] [place] [address] [phone] Ignacia Gillespie MD [address] [place], [place] [phone] Health Maintenance Due Date Last Done Comments CT Colonography 1955 FIT DNA/Cologuard 1955 FIT 1955 FOBT 1955 Sigmoidoscopy 1955 Zoster Vaccines (2 of 3) 05/07/2015 03/12/2015 Cervical Cancer Screening 09/01/2024 HPV/Cotest 09/01/2024 04/14/2023 Pap Smear 09/01/2024 06/09/2023, 04/14/2023 COVID-19 Vaccine ( season) 2025 05/30/2024, 08/16/2023, 03/28/2023, Additional history exists Influenza Vaccine (#1) 2025 , 04/27/2023, 06/07/2022, Additional history exists Diabetes: Hemoglobin A1C 05/24/2025 05/24/2024, 08/2 04/2023 Depression Screening 05/30/2025 05/30/2024, 05/30/20 Alcohol/Substance Use Screening 11/16/2025 11/16/2024 Tobacco Screening 12/31/2025 12/31/2024 SDOH Screening 07/04/2026 07/04/2025 Mammogram 01/18/2027 01/18/2025, 05/0 04/2024, 12/16/2022, Additional history exists Lipid Panel 05/24/2029 05/24/2024, 09/2023, 04/12/2023 Colonoscopy 08/14/2031 08/14/2024 Colorectal Cancer Screening 08/14/2031 DTaP/Tdap/Td Vaccines (3 - Td or Tdap) 03/28/2033 03/28/2023, 10/16/2012, 05/21/2007, Additional history exists Hepatitis A Vaccines Aged Out 01/02/2015, 07/04/20 14 No longer eligible based on patient's age to complete this topic Hepatitis B Vaccines Completed 07/21/2018, 01/19/2018, 12/19/2017 Pneumococcal Vaccine: 50+ Years Completed 07/14/2021, 02/12/2019 Colposcopy Completed 09/01/2023, 09/01/2023 RSV Patients and Patients Aged 60 years or older Completed 12/22/2023 Hepatitis C Screening Completed 05/24/2024, 023 HIB Vaccines Aged Out No longer eligi ble based on patient's age to complete this topic HPV Vaccines Aged Out No longer eligi ble based on patient's age to complete this topic IPV Vaccines Aged Out No longer eligi ble based on patient's age to complete this topic Meningococcal B Vaccine Aged Out No l onger eligible based on patient's age to complete this topic Meningococcal Vaccine Aged Out No stephanie mariella eligible based on patient's age to complete this topic RSV under 20 months Aged Out No longe r eligible based on patient's age to complete this topic Rotavirus Vaccines Aged Out No longer eligible based on patient's age to complete this topic Procedures Procedure Name Priority Date/Time Associated Diagnosis Comments BI MAMMOGRAM SCREENING TOMOSYNTHESIS BILATERAL Routine 01/18/2025 10:50 AM EDT HM COLONOSCOPY Routine 08/14/2024 5:18 PM EST HEPATITIS C AB W/REFL TO HCV RNA, QN, PCR Routine 05/24/2024 8:55 AM EDT Annual physical exam HEMOGLOBIN A1C Routine 05/24/2024 8:55 AM EDT Annual physical exam LIPID PANEL, STANDARD Routine 05/24/2024 8:55 AM EDT Annual physical exam COLPOSCOPY Routine 09/01/2023 PAP SMEAR Routine 06/09/2023 11:00 PM EDT HPV MRNA E6/E7 REFLEX TO HPV 16, 18/45 Routine 04/14/2023 12:52 PM EDT from Last 3 Months or Most Recently Relevant to Health Maintenance Results * BI Mammogram Screening Tomosynthesis Bilateral (01/18/2025 10:50 AM EDT) Anatomical Region Laterality Modality Breast Bilateral Mammography 01/18/2025 10:5 0 AM EDT Narrative 01/24/2025 12:02 PM EDT [facility] [address] [place] [address] Mammography Report Signed Patient: Suzanne Cleaning MR#: [id number] 83 : 1955 Acct:[id number] Age/Sex: 70 / F ADM Date: 01/18/25 Loc: HO.MAMMO Attending Dr: Ignacia Butt MD Ordering Physician: Ignacia Gillespie MD Re sults: 2Benign Findings Date of Service: 01/18/25 Follow Up: 1 Year From Orig inal Mammogram Procedure(s): MM tomosynthesis screening BI Accession Number(s): [id number] cc: Ignacia Gillespie MD EXAMINATION: MM SCREENING DIGITAL BREAST TOMOSYNTHESIS, BILATERAL CLINICAL INFORMATION: Screening. Asymptomatic. COMPARISON: Mammography: Comparison is made with available priors TECHNIQUE: Digital breast mammography with tomosynthesis is performed in both the craniocaudal and mediolateral oblique views along with computer-aided detection (CAD). FINDINGS: The breasts are heterogeneously dense, which may obscure small masses (ACR BI-RADS breast composition Category c). Status post left excisional biopsy changes are stable. There are no significant masses, abnormal calcifications, or other abnormalities. MM/MM tomosynthesis screening BI IMPRESSION: No mammographic evidence of malignancy. ASSESSMENT: BI-RADS BI-RADS 2 - Benign Findings RECOMMENDATION: Routine annual mammography screening. 1 year F/U This examination should not preclude the clinical evaluation of a suspicious palpable abnormality. This patient's information was entered into a reminder system with a target due date for their next mammogram. Electronically signed by: Jennifer Colon DO 01/24/2025 11:59 AM EDT Dictated By: Jennifer Colon DO Signed By: <Electronically signed by Jennifer Colon DO in OV> 01/24/25 1159 DD/ 1050 TD/TT: 01/18/25 1102 Safety Sitter: Procedure Note Donotuseinterpreter, Image - 01/24/2025 [facility] [address] [place] [address] Mammography Report Signed Patient: Suzanne CleaningMR#: [id number] 83 : 1955cct:[id number] Age/Sex: 70 / FADM Date: 01/18/25 Loc: HO.MAMMO Attending Dr: Ignacia Butt MD Ordering Physician: Ignacia Gillespie sults: 2Benign Findings Date of Service: 01/18/25Follow Up: 1 Year From Orig ina Mammogram Procedure(s): MM tomosynthesis screening BI Accession Number(s): [id number] cc: Ignacia Gillespie MD EXAMINATION: MM SCREENING DIGITAL BREAST TOMOSYNTHESIS, BILATERAL CLINICAL INFORMATION: Screening. Asymptomatic. COMPARISON: Mammography: Comparison is made with available priors TECHNIQUE: Digital breast mammography with tomosynthesis is performed in both the craniocaudal and mediolateral oblique views along with computer-aided detection (CAD). FINDINGS: The breasts are heterogeneously dense, which may obscure small masses (ACR BI-RADS breast composition Category c). Status post left excisional biopsy changes are stable. There are no significant masses, abnormal calcifications, or other abnormalities. MM/MM tomosynthesis screening BI IMPRESSION: No mammographic evidence of malignancy. ASSESSMENT: BI-RADS BI-RADS 2 - Benign Findings RECOMMENDATION: Routine annual mammography screening. 1 year F/U This examination should not preclude the clinical evaluation of a suspicious palpable abnormality. This patient's information was entered into a reminder system with a target due date for their next mammogram. Electronically signed by: Jennifer Colon DO 01/24/2025 11:59 AM EDT Dictated By: Jennifer Colon DO Signed By: <Electronically signed by Jennifer Colon DO in OV> 01/24/25 1159 DD/ 1050 TD/TT: 01/18/25 1102 Safety Sitter: Ignacia Butt MD IMG BI PROCEDURES Edited Result - Final * Colonoscopy (08/14/2024 5:18 PM EST) Historical Provider HEALTH MAINTENANCE Final Result * Hepatitis C Antibody with Reflex to HCV, RNA, Quantitative, Real-Time PCR (05/24/2024 8:55 AM EDT) Hepatitis C Antibody Nonreactive Nonreactive [facility] Comment:Antibodies to HCV no t detected; does not exclude early acuteHCV infection. Blood Venous blood specimen / Unknown 05/24/2024 8:55 AM EDT 05/24/2024 11:08 AM EDT Ignacia Butt MD LAB BLOOD ORDERAB LES Final Result [facility] [address] [place] [phone] * Hemoglobin A1c (05/24/2024 8:55 AM EDT) Hemoglobin A1c 5.9 <6.0 % [facility] Comment:Hemoglobin A1C Refer ence Range Adults: 4.8 - 6.0 % Non diabetic: < 6.0 % Goal: < 7.0 %Additional Action Suggested: > 8.0 %Note: Hemoglobin A1c results are invalid for patients with abnormal amounts of HbF. Blood transfusions may impact the HbA1c concentration in the patient sample. Estimated Average Glucose 123 mg/dL [facility] Comment:eAG = Estimated ave rage glucose which is %A1C expressed asaverage glucose, using the formula of the F4R-GhontvnQmbzuoo Glucose study (ADAG), Diabetes Care, Vol.31,#8,Mar. 2007 Blood Venous blood specimen / Unknown 05/24/2024 8:55 AM EDT 05/24/2024 11:08 AM EDT Ignacia Butt MD LAB BLOOD ORDERAB LES Final Result Performing Organization Address City/[facility]/ZIP Co de Phone Number [facility] [address] [place] [phone] * Lipid Panel, Standard (05/24/2024 8:55 AM EDT) Triglycerides 124 <150 mg/dL [facility] Comment:Desirable Triglyceri de: less than 150 mg/dLBorderline High Triglyceride 150-199 mg/dLHigh Triglyceride: 200-499 mg/dLVery High Triglyceride: greater than or equal to 5OO mg/dL Cholesterol 154 <200 mg/dL [facility] Comment:Desirable Cholestero l: less than 200 mg/dLBorderline High Cholesterol: 200-239 mg/dLHigh Cholesterol: greater than 239 mg/dL LDL Cholesterol Calculated 71 <100 mg/dL [facility] Comment:Desirable LDL: less than 100 mg/dLNear Optimal/Above Optimal LDL: 110- 129 mg/dLBorderline High LDL: 130-159 mg/dLHigh LDL: 160-189 mg/dLVery High LDL: greater than or equal to 190 mg/dL HDL Cholesterol 59 >40 mg/dL [facility] Comment:Desirable HDL: great er than 40 mg/dL Note: This HDL assay may give artificially low results in patients with liver disease. Blood Venous blood specimen / Unknown 05/24/2024 8:55 AM EDT 05/24/2024 11:08 AM EDT us Ignacia Butt MD LAB BLOOD ORDERAB LES Final Result Performing Organization Address [facility]/ZIP Co de Phone Number [facility] [address] [place] [phone] * Colposcopy (09/01/2023) us Historical Provider MD IN CLINIC/BEDSIDE ORDERAB LES Final Result * Pap Smear (06/09/2023 11:00 PM EDT) 06/09/2023 11:0 0 PM EDT 06/10/2023 6:30 AM EDT Narrative [facility] - 06/16/2023 6:35 PM EDT ----- ------- Name: Suzanne Cleaning Age/Sex: 68/F : 1955 Unit#: [id number] Attend Dr: LIZ FIORE CNM Re06/09/23 Status: [facility] REF Location: [facility] Disch: ----- ------- SPEC : [id number] RECD: 06/10/23 STATUS: MICA LINDA NUM: [id number] JEFFREY: 06/09/[address] [facility] [address]: LIZ FIORE CNM ENTERED: 06/10/23-1018 SP TYPE: Pap Smr OTHR DR: ORDERED: Pap Smear, PAP path review Interpretation General Category: Epithelial cell abnormality. Adequacy: Endocervical component present. Interpretation: Low grade squamous intraepithelial lesion (JOHN I). Elevated estrogen for patient's age and history Clinical Information LMP: Unknown date Previous PAP test: 2013, WNL Other history: Unsatisfactory pap, HPV positive 03/2023. Material Received ThinPrep-Vaginal/Cervical ----- ------- Signed (signature on file) Noemi Rosalva 06/16/23 1835 ----- ------- END OF REPORT us Liz Fiore [facility] CYTOLOGY ORDERABLES F inal Result [facility] [address] [place] [phone] * (ABNORMAL) HPV mRNA E6/E7 w/Reflex to HPV Genotypes 16, 18/45 (04/14/2023 12:52 PM EDT) HPV nRNA E6/E7 Detected(A ) Not Detected [facility] Comment:Methodology: Transcr iption-Mediated AmplificationThis assay detects E6/E7 viral messenger RNA (mRNA) from 14high-risk HPV types (16,18,31,33,35,39,45,51,52,56,58,59,66,68).Cervical sources are required for HPV testing.If a vaginal source from a patient who has had atotal hysterectomy with removal of cervix wassubmitted, please contact the testing laboratoryfor alternative testing options.For additional information, please refer tohttp://education.Lifes[employer]/faq/SMY350v0(This link if provided for information/educational purposes only.)THIS TEST WAS PERFORMED AT:[facility] [address] [id number] LIZARRAGA MD HPV 16 RNA NOT DETECTED NOT DETECTED [facility] HPV 18/45 RNA NOT DETECTED NOT DETECTED [facility] Comment:Methodology: Transcr iption Mediated AmplificationCervical sources are required for HPV testing.If a vaginal source from a patient who has had atotal hysterectomy with removal of cervix wassubmitted, please contact the testing laboratoryfor alternative testing options.THIS TEST WAS PERFORMED AT:[facility] [address] [id number] LIZARRAGA MD 04/14/2023 12:5 2 PM EDT 04/15/2023 12:00 PM EDT Liz Fiore [facility] CYTOLOGY ORDERABLES F inal Result [facility] [address] [place] [phone] from Last 3 Months or Most Recently Relevant to Health Maintenance Insurance MEDICARE [facility] Care Teams Director Talent Relationship Specialty Start Date End Date Ignacia Gillespie MD [address] [place] [address] [phone] PCP - General Internal Medicine 01/19/23
[2025-07-09 11:55] LABS: Hematocrit 37.9 % (37.0-47.0); Hemoglobin 12.3 g/dl (12.0-16.0); Mean Corpuscular HGB Conc 32.5 g/dl (31.0-35.0); Mean Corpuscular Hemoglobin 32.0 pg (27.0-33.0); Mean Corpuscular Volume 98.7 fL (80.0-98.0); NRBC Abs Auto 0.000 X10*3/uL (0.0-0.012); NRBC Pct Auto 0.0 /100WBC (0.0-0.2); Platelet Count 243 X10*3/uL (160-400); Red Blood Count 3.84 X10*6/uL (4.20-5.50); White Blood Count 6.4 X10*3/uL (4.8-10.8)
[2025-07-09 14:18] LABS: Alanine Aminotransferase 30 U/L (0-31); Albumin Level 4.7 g/dL (3.5-5.0); Alkaline Phosphatase 104 U/L (39-117); Anion Gap 11 (12-20); Aspartate Amino Transferase 40 U/L (5-31); Blood Urea Nitrogen 9 mg/dL (9-16); Calcium 9.6 mg/dL (8.4-10.2); Carbon Dioxide 29 mmol/L (22-29); Chloride 106 mmol/L (96-108); Cholesterol 235 mg/dL (<200); Estimated Glomerular Filt Rate > 60; HDL Cholesterol 61 mg/dL (>40); Potassium 4.0 mmol/L (3.3-5.1); Sodium 142 mmol/L (135-145); Total Protein 8.2 g/dL (6.5-8.0); Triglycerides 134 mg/dL (<150)
== END 2025-07-09 09:48 | disposition home or self-care (01) ==
LOC: HO.HHCX 09:47
PROVIDERS: PCP Student in an Organized Health Care Education/Training Program; Visit Provider Student in an Organized Health Care Education/Training Program
DX: G89.29 Other chronic pain (principal); M25.562 Pain in left knee; M25.552 Pain in left hip; E78.5 Hyperlipidemia, unspecified; D75.89 Other specified diseases of blood and blood-forming organs; R73.03 Prediabetes
CPT/HCPCS: 36415; 73502; 73562; 80053; 80061; 82550; 83036; 85027

== ENCOUNTER → 2025-07-09 09:58 | Outpatient (BNV) | payer MEDICARE, MEDICAID, SELFPAY | PROVIDERS: PCP Student in an Organized Health Care Education/Training Program; Visit Provider Radiology Diagnostic Radiology | DX: M16.12 Unilateral primary osteoarthritis, left hip (principal); M17.12 Unilateral primary osteoarthritis, left knee | CPT/HCPCS: 73502; 73562 ==

== ENCOUNTER 2025-07-10 08:59 | Outpatient (REF) | payer OTHER, SELFPAY ==
--- OUTSIDE RECORDS SUMMARY | 2025-07-10 09:37 | XMS_ITS | Encounter Summary ---
Author Organization [email or web address] Address [address] [facility] 7 [place] [address] Care Team Providers Care Surfboard Maker Name Role Phone Ignacia Gillespie MD Primary Care Pro vider Reason for Visit * Reason Onset Date Comments Appointment Request 04/24/2025 Encounter Details Date Type Department Care Team ([facility] st Contact Info) Description 04/24/2025 Telephone [facility] MEDICINE [address] [place], [place] [phone] Ignacia Gillespie MD [address] [place] [address] Appointment Request Social History Tobacco Use Types [...] and wont be back until the Apr. X Ray Inspector tried to cancel apt and there is nothing available. Contact pt at [phone] documented in this encounter Plan of Treatment Upcoming Encounters Date Type Department Care Team (Late st Contact Info) Description 07/17/2025 9:45 AM EST Office Visit [facility] MEDICINE [address] [place] [address] Ignacia Gillespie MD [address] [place] [phone] documented as of this encounter Visit Diagnoses Not on filedocumented in this encounter Additional Health Concerns Assessment Noted Time PHQ-9 Depression Total Score: 0 05/30/20 24 12:23 PM EDT documented as of this encounter Care Teams Surfboard Maker Relationship Specialty Start Date End Date Ignacia Gillespie MD [address] [place] [address] [phone] PCP - General Internal Medicine 01/19/23 documented as of this encounter
--- OUTSIDE RECORDS SUMMARY | 2025-07-10 09:37 | XMS_ITS | Encounter Summary ---
Author Organization [employer] Address [address] [facility] 7t [place] [address] Care Team Providers Care Online Facilitator Name Role Phone Ignacia Gillespie MD Primary Care Pro vider Encounter Details Date Type Department Care Team ([facility] st Contact Info) Description 08/16/2024 Orders Only [facility] [address] [place] [phone] Provider, MD Melanie Social History Tobacco Use [...] Description 07/17/2025 9:45 AM EST Office Visit [facility] MEDICINE [address] [place] [phone] Ignacia Gillespie MD [address] [place] [phone] documented as of this encounter Procedures Procedure [...] documented as of this encounter Care Teams Online Facilitator Relationship Specialty Start Date End Date Ignacia Gillespie MD [address] [place] [address] [phone] PCP - General Internal Medicine 01/19/23 documented as of this encounter
--- OUTSIDE RECORDS SUMMARY | 2025-07-10 09:37 | XMS_ITS | Encounter Summary ---
Author Organization [employer] Address 75 [facility] 7t [place] [address] Care Team Providers Care Manager Services Name Role Phone Ignacia Gillespie MD Primary Care Pro vider Encounter Details Date Type Department Care Team (Latest Contact Info) Description 07/09/2025 Results Follow-Up [facility] MEDICINE [address] [place] [phone] Ignacia Gillespie MD [address] [place] [address] CBC, Hemoglobin A1c, Comprehensive Metabolic Panel, Additional followed-up results: 2 Social History Tobacco Use Types Packs/Day Years [...] as of this encounter Miscellaneous Notes * Result Encounter Note - Ignacia Butt MD - 07/09/2025 2:38 PM EST Please call patient to advise to come to already scheduled apt with me to go over abnormal labs Thanks * Result Encounter Note - Ignacia Butt MD - 07/09/2025 1:41 PM EST Please call patient to advise to come to already scheduled apt with me to go over abnormal labs Thanks documented in this encounter Plan of Treatment Upcoming Encounters Date Type Department Care Team (Late st Contact Info) Description 07/17/2025 9:45 AM EST Office Visit [facility] MEDICINE [address] [place] [phone] Ignacia Gillespie MD [address] [place], [place] [phone] documented as of this encounter Visit Diagnoses Not on filedocumented in this encounter Additional Health Concerns Assessment Noted Time PHQ-9 Depression Total Score: 0 05/30/20 24 12:23 PM EDT documented as of this encounter Care Teams Manager Services Relationship Specialty Start Date End Date Ignacia Gillespie MD [address] [place] [phone] PCP - General Internal Medicine 01/19/23 documented as of this encounter
--- OUTSIDE RECORDS SUMMARY | 2025-07-10 09:37 | XMS_ITS | Encounter Summary ---
Author Organization [employer] Address [address] [facility] 7[address] [place] [address] Care Team Providers Care Metal Can Inspector Name Role Phone Ignacia Gillespie MD Primary Care Pro vider Encounter Details Date Type Department Care Team (Late st Contact Info) Description 12/13/2024 Orders Only [facility] [address] [place], [place] [phone] Provider, MD Melanie Social History Tobacco Use [...] Description 07/17/2025 9:45 AM EST Office Visit [facility] MEDICINE [address] [place] [phone] Ignacia Gillespie MD [address] [place] [phone] documented as of this encounter Procedures Procedure [...] documented as of this encounter Care Teams Metal Can Inspector Relationship Specialty Start Date End Date Ignacia Gillespie MD [address] [place] [phone] PCP - General Internal Medicine 01/19/23 documented as of this encounter
--- OUTSIDE RECORDS SUMMARY | 2025-07-10 09:38 | XMS_ITS | Clinical Summary ---
Author Organization [employer] Address [address] [facility] [address] [place] [address] Care Team Providers Care Marble Polisher Name Role Phone Ignacia Gillespie MD Primary [...] Encounters Date Type Department Care Team Description 07/09/2025 Results Follow-Up [facility] [address] [place] [phone] Ignacia Gillespie MD CBC, Hemoglobin A1c, Comprehensive Metabolic Panel, Additional followed-up results: 2 07/04/2025 Patient Outreach [facility] [address] [place] [address] Ignacia Gillespie MD Pre-visit Planning (SDOH Screening negative and Tobacco screening negative) 04/26/2025 Telephone [facility] [address] [place] [address] Ignacia Gillespie MD dec recall 04/24/2025 Telephone [facility] [address] [place] [address] Ignacia Gillespie MD Appointment Request from Last [...] Office Visit [facility] [address] [place] [phone] Ignacia Gillespie MD [address] [place] [address] Health Maintenance Due Date Last Done Comments CT Colonography 1955 FIT DNA/Cologuard 1955 FIT 1955 FOBT 1955 Sigmoidoscopy 1955 Zoster Vaccines (2 of 3) 05/07/2015 03/12/2015 Cervical Cancer Screening 09/01/2024 HPV/Cotest 09/01/2024 04/14/2023 Pap Smear 09/01/2024 06/09/2023, 04/14/2023 COVID-19 Vaccine ( season) 2025 05/30/2024, 08/16/2023, 03/28/2023, Additional history exists Influenza Vaccine (#1) 2025 , 04/27/2023, 06/07/2022, Additional history exists Depression Screening 05/30/2025 05/30/2024, 05/30/20 Alcohol/Substance Use Screening 11/16/2025 11/16/2024 Tobacco Screening 12/31/2025 12/31/2024 SDOH Screening 07/04/2026 07/04/2025 Diabetes: Hemoglobin A1C 07/09/2026 025, 05/24/2024, 04/12/2023 Mammogram 01/18/2027 01/18/2025, 04/2024, 12/16/2022, Additional history exists Lipid Panel 07/09/2030 07/09/2025, 05/15, 08/16/2023, Additional history exists Colonoscopy 08/14/2031 08/14/2024 Colorectal Cancer Screening 08/14/2031 [...] Procedure Name Priority Date/Time Associated Diagnosis Comments CREATINE KINASE, TOTAL Routine 07/09/2025 10:26 AM EST Macrocytosis without anemia HEMOGLOBIN A1C Routine 07/09/2025 10:26 AM EST Prediabetes LIPID PANEL, STANDARD Routine 07/09/2025 10:26 AM EST Hyperlipidemia, unspecified hyperlipidemia type CBC Routine 07/09/2025 10:26 AM EST Hyperlipidemia, unspecified hyperlipidemia type COMPREHENSIVE METABOLIC PANEL Routine 07/09/2025 10:26 AM EST Hyperlipidemia, unspecified hyperlipidemia type XR KNEE 3 VIEWS LEFT Routine 07/09/2025 10:22 AM EST Chronic pain of left knee XR HIP 2 OR 3 VIEWS LEFT Routine 07/09/2025 10:18 AM EST Pain of left hip BI MAMMOGRAM SCREENING TOMOSYNTHESIS BILATERAL Routine 01/18/2025 [...] Recently Relevant to Health Maintenance Results * (ABNORMAL) CBC (07/09/2025 10:26 AM EST) White Blood Count 6.4 4.8 - 10.8 X10*3/uL [facility] Red Blood Count 3.84(L) 4.20 - 5.50 X10*6/uL [facility] Hemoglobin 12.3 12.0 - 16.0 g/dl [facility] Hematocrit 37.9 37.0 - 47.0 % [facility] Mean Corpuscular Volume 98.7(H) 80.0 - 98.0 fL [facility] Mean Corpuscular Hemoglobin 32.0 27.0 - 33.0 pg [facility] Mean Corpuscular HGB Conc 32.5 31.0 - 35.0 g/dl [facility] Red Cell Distribution Width 13.1 11.0 - 16.0 % [facility] Platelet Count 243 160 - 400 X10*3/uL [facility] Mean Platelet Volume 10.4 9.4 - 12.3 fL [facility] NRBC Pct Auto 0.0 0.0 - 0.2 /100WBC [facility] NRBC Abs Auto 0.000 0.0 - 0.012 X10*3/uL [facility] Blood Venous blood specimen / Unknown 07/09/2025 10:26 AM EST 07/09/2025 11:38 AM EST Ignacia Butt MD LAB BLOOD ORDERAB LES Final Result Performing Organization Address [facility] Co de Phone Number [facility] [address] [place] [phone] * Hemoglobin A1c (07/09/2025 10:26 AM EST) Hemoglobin A1c 6.0 <6.0 % [facility] Comment:Hemoglobin A1C Refer ence Range Adults: 4.8 - 6.0 % Non diabetic: < 6.0 % Goal: < 7.0 %Additional Action Suggested: > 8.0 %Note: Hemoglobin A1c results are invalid for patients with abnormal amounts of HbF. Blood transfusions may impact the HbA1c concentration in the patient sample. Estimated Average Glucose 126 mg/dL [facility] Comment:eAG = Estimated ave rage glucose which is %A1C expressed asaverage glucose, using the formula of the G5G-LhgtwzwHbtmwea Glucose study (ADAG), Diabetes Care, Vol.31,#8,Mar. 2007 Blood Venous blood specimen / Unknown 07/09/2025 10:26 AM EST 07/09/2025 11:38 AM EST us Ignacia Butt MD LAB BLOOD ORDERAB LES Final Result Performing Organization Address City/[facility]/ZIP Co de Phone Number [facility] [address] [place] [phone] * (ABNORMAL) Creatine Kinase, Total (07/09/2025 10:26 AM EST) Creatine Kinase Total 146(H) 26 - 140 U/L [facility] Blood Venous blood specimen / Unknown 07/09/2025 10:26 AM EST 07/09/2025 1:04 PM EST us Ignacia Butt MD LAB BLOOD ORDERAB LES Final Result [facility] [address] [place] [phone] * (ABNORMAL) Lipid Panel, Standard (07/09/2025 10:26 AM EST) Triglycerides 134 <150 mg/dL [facility] Comment:Desirable Triglyceri de: less than 150 mg/dLBorderline High Triglyceride 150-199 mg/dLHigh Triglyceride: 200-499 mg/dLVery High Triglyceride: greater than or equal to 5OO mg/dL Cholesterol 235(H) <200 mg/dL [facility] Comment:Desirable Cholestero l: less than 200 mg/dLBorderline High Cholesterol: 200-239 mg/dLHigh Cholesterol: greater than 239 mg/dL LDL Cholesterol Calculated 148(H) <100 mg/dL [facility] Comment:Desirable LDL: less than 100 mg/dLNear Optimal/Above Optimal LDL: 110- 129 mg/dLBorderline High LDL: 130-159 mg/dLHigh LDL: 160-189 mg/dLVery High LDL: greater than or equal to 190 mg/dL HDL Cholesterol 61 >40 mg/dL [facility] Comment:Desirable HDL: great er than 40 mg/dL Note: This HDL assay may give artificially low results in patients with liver disease. Blood Venous blood specimen / Unknown 07/09/2025 10:26 AM EST 07/09/2025 1:04 PM EST us Ignacia Butt MD LAB BLOOD ORDERAB LES Final Result Performing Organization Address City/[facility]/ZIP Co de Phone Number [facility] [address] [place] [phone] * (ABNORMAL) Comprehensive Metabolic Panel (07/09/2025 10:26 AM EST) Sodium 142 135 - 145 mmol/L [facility] Potassium 4.0 3.3 - 5.1 mmol/L [facility] Chloride 106 96 - 108 mmol/L [facility] Carbon Dioxide 29 22 - 29 mmol/L [facility] Anion Gap 11(L) 12 - 20 [facility] Urea Nitrogen (BUN) 9 9 - 16 mg/dL [facility] Creatinine, Serum 0.66 0.5 - 1.4 mg/dL [facility] Estimated Glomerular Filt Rate >60 [facility] Comment:Chronic Kidney Disea se: Estimated GFR < 60 mL/min/1.59h5Rrvlrm Kidney Disease: Estimated GFR < 15 mL/min/1.73m2 Glucose 101 60 - 115 mg/dL [facility] Calcium 9.6 8.4 - 10.2 mg/dL [facility] Bilirubin, Total 0.6 0.0 - 1.0 mg/dL [facility] Aspartate Amino Transferase 40(H) 5 - 31 U/L [facility] Alanine Aminotransferase 30 0 - 31 U/L [facility] Total Protein 8.2(H) 6.5 - 8.0 g/dL [facility] Albumin Level 4.7 3.5 - 5.0 g/dL [facility] Alkaline Phosphatase 104 39 - 117 U/L [facility] Blood Venous blood specimen / Unknown 07/09/2025 10:26 AM EST 07/09/2025 1:04 PM EST us Ignacia Butt MD LAB BLOOD ORDERAB LES Final Result Performing Organization Address City/[facility]/ZIP Co de Phone Number [facility] [address] [place] [phone] * XR Knee 3 Views Left (07/09/2025 10:22 AM EST) Anatomical Region Laterality Modality Lower Extremities, Knee Left Radiogra phic Imaging 07/09/2025 10:2 2 AM EST Narrative 07/09/2025 12:27 PM EST [address] [address] XRay Report Signed Patient: Suzanne Cleaning MR#: [id number] 82 : 1955 Acct:[id number] Age/Sex: 70 / F ADM Date: 07/09/25 Loc: .HHCX Attending Dr: Ignacia Butt MD Ordering Physician: Ignacia Gillespie MD Date of Service: 07/09/25 Procedure(s): XR knee LT 3V Accession Number(s): [id number] cc: Ignacia Gillespie MD Reason for Exam: 5 mo of ongoing pain in left knee EXAMINATION: XR KNEE, LEFT CLINICAL INFORMATION: 5 mo of ongoing pain in left knee COMPARISON: None available. TECHNIQUE: Three views of the left knee. FINDINGS: There is no joint effusion. There are small enthesophytes involving superior patella and tibial tuberosity. Medial intercondylar tubercle is peaked. Minute marginal osteophyte is visible along the medial tibial plateau and notch side of the medial femoral condyle. There are small marginal osteophytes involving patella. XR/XR knee LT 3V IMPRESSION: Subtle changes of osteoarthritis. Electronically signed by: Eligio Reyez MD 07/09/2025 12:24 PM EST Dictated By: Eligio Reyez MD Signed By: <Electronically signed by Eligio Reyez MD in OV> 07/09/25 1224 DD/ 1022 TD/TT: 07/09/25 1030 Java Developer Analyst: Procedure Note Donotuseinterpreter, Image - 07/09/[address] [address] XRay Report Signed Patient: Suzanne CleaningMR#: [id number] [birth year] : 1955cct:[id number] Age/Sex: 70 / FADM Date: 07/09/25 Loc: HO.HHCX Attending Dr: Ignacia Butt MD Ordering Physician: Ignacia Gillespie MD Date of Service: 07/09/25 Procedure(s): XR knee LT 3V Accession Number(s): [id number] cc: Ignacia Gillespie MD Reason for Exam: 5 mo of ongoing pain in left knee EXAMINATION: XR KNEE, LEFT CLINICAL INFORMATION: 5 mo of ongoing pain in left knee COMPARISON: None available. TECHNIQUE: Three views of the left knee. FINDINGS: There is no joint effusion. There are small enthesophytes involving superior patella and tibial tuberosity. Medial intercondylar tubercle is peaked. Minute marginal osteophyte is visible along the medial tibial plateau and notch side of the medial femoral condyle. There are small marginal osteophytes involving patella. XR/XR knee LT 3V IMPRESSION: Subtle changes of osteoarthritis. Electronically signed by: Eligio Reyez MD 07/09/2025 12:24 PM EST Dictated By: Eligio Reyez MD Signed By: <Electronically signed by Eligio Reyez MD in OV> 07/09/25 1224 DD/ 1022 TD/TT: 07/09/25 1030 Java Developer Analyst: us Ignacia Butt MD IMG XR PROCEDURES Final Result * XR Hip 2 or 3 Views Left (07/09/2025 10:18 AM EST) Anatomical Region Laterality Modality Lower Extremities, Hip Left Radiograp hic Imaging 07/09/2025 10:1 8 AM EST Narrative 07/09/2025 12:25 PM EST [address] [address] XRay Report Signed Patient: Suzanne Cleaning MR#: [id number] [birth year] : 1955 Acct:[id number] Age/Sex: 70 / F ADM Date: 07/09/25 Loc: HO.CX Attending Dr: Ignacia Butt MD Ordering Physician: Ignacia Gillespie MD Date of Service: 07/09/25 Procedure(s): XR hip LT min 2V Accession Number(s): [id number] cc: Ignacia Gillespie MD Reason for Exam: 5 mo of ongoing pain in left hip EXAMINATION: XR HIP, LEFT CLINICAL INFORMATION: 5 mo of ongoing pain in left hip COMPARISON: None available. TECHNIQUE: AP and frog-leg lateral views of the left hip. FINDINGS: There is mild axial joint space narrowing. There are marginal osteophyte involving the acetabulum. No other degenerative changes are evident in the left hip joint. There is no visible fracture. Mild degenerative irregularity is within the left SI joint. XR/XR hip LT min 2V IMPRESSION: Mild degenerative changes are evident in the left hip and SI joints. Electronically signed by: Eligio Reyez MD 07/09/2025 12:22 PM [facility] Dictated By: Eligio Reyez MD Signed By: <Electronically signed by Eligio Reyez MD in OV> 07/09/25 1222 DD/ 1018 TD/TT: 07/09/25 1030 Java Developer Analyst: Procedure Note Donotuseinterpreter, Image - 07/09/2025 [place] [address] XRay Report Signed Patient: Suzanne Cleaning#: [id number] [birth year] : 4Acct:[id number] Age/Sex: 70 / FADM Date: 07/09/25 Loc: HO.CX Attending Dr: Ignacia Butt MD Ordering Physician: Ignacia Gillespie MD Date of Service: 07/09/25 Procedure(s): XR hip LT min 2V Accession Number(s): [id number] cc: Ignacia Gillespie MD Reason for Exam: 5 mo of ongoing pain in left hip EXAMINATION: XR HIP, LEFT CLINICAL INFORMATION: 5 mo of ongoing pain in left hip COMPARISON: None available. TECHNIQUE: AP and frog-leg lateral views of the left hip. FINDINGS: There is mild axial joint space narrowing. There are marginal osteophyte involving the acetabulum. No other degenerative changes are evident in the left hip joint. There is no visible fracture. Mild degenerative irregularity is within the left SI joint. XR/XR hip LT min 2V IMPRESSION: Mild degenerative changes are evident in the left hip and SI joints. Electronically signed by: Eligio Reyez MD 07/09/2025 12:22 PM EST RP Dictated By: Eligio Reyez MD Signed By: <Electronically signed by Eligio Reyez MD in OV> 07/09/25 1222 DD/ 1018 TD/TT: 07/09/25 1030 Java Developer Analyst: us Ignacia Butt MD IMG XR PROCEDURES Final Result * BI Mammogram Screening Tomosynthesis Bilateral (01/18/2025 10:50 AM EDT) Anatomical Region Laterality Modality Breast Bilateral Mammography 01/18/2025 10:5 0 AM EDT Narrative 01/24/2025 12:02 PM EDT [facility] [address] [place] [address] Mammography Report Signed Patient: Suzanne Cleaning MR#: [id number] [birth year] : 1955 Acct:[id number] Age/Sex: 70 / F ADM Date: 01/18/25 Loc: HO.MAMMO Attending Dr: Ignacia Butt MD Ordering Physician: Ignacia Gillespie MD Re sults: 2Benign Findings Date of Service: 01/18/25 Follow Up: 1 Year From Orig inal Mammogram Procedure(s): MM tomosynthesis screening BI Accession Number(s): [id number] cc: Ignacia Gillespie MD EXAMINATION: MM SCREENING [...] Jennifer Colon DO 01/24/2025 11:59 AM EDT RP Dictated By: Jennifer Colon DO Signed By: <Electronically signed by Jennifer Colon DO in OV> 01/24/25 1159 DD/ 1050 TD/TT: 01/18/25 1102 Java Developer Analyst: Procedure Note Donotuseinterpreter, Image - 01/24/2025 [facility] [address] [place], [place] [address] Mammography Report Signed Patient: Alecia Cleaning#: [id number] [birth year] : 4Acct:[id number] Age/Sex: 70 / FADM Date: 01/18/25 Loc: SRINIVASO Attending Dr: Ignacia Butt MD Ordering Physician: Ignacia Gillespie sults: 2Benign Findings Date of Service: 01/18/25Follow Up: 1 Year From Orig inal Mammogram Procedure(s): MM tomosynthesis screening BI Accession Number(s): [id number] cc: Ignacia Gillespie MD EXAMINATION: MM SCREENING [...] 01/24/25 1159 DD/ 1050 TD/TT: 01/18/25 1102 Java Developer Analyst: Ignacia Butt MD IMG BI PROCEDURES Edited Result - Final * Hm Colonoscopy (08/14/2024 5:18 PM EST) Historical Provider HEALTH MAINTENANCE Final Result * Hepatitis C Antibody with Reflex to HCV, RNA, Quantitative, Real-Time PCR (05/24/2024 8:55 AM EDT) Hepatitis C Antibody Nonreactive Nonreactive [facility] Comment:Antibodies to HCV no t detected; does not exclude early acuteHCV infection. Blood Venous blood specimen / Unknown 05/24/2024 8:55 AM EDT 05/24/2024 11:08 AM EDT Ignacia Butt MD LAB BLOOD ORDERAB LES Final Result [facility] [address] [place] [phone] * Colposcopy (09/01/2023) us Historical Provider MD IN CLINIC/BEDSIDE ORDERAB LES Final Result * Pap Smear (06/09/2023 11:00 PM EDT) 06/09/2023 11:0 0 PM EDT 06/10/2023 6:30 AM EDT [facility] - 06/16/2023 6:35 PM EDT ----- ------- Name: Suzanne Cleaning Age/Sex: 68/F : 1955 Unit#: [id number] Attend Dr: LIZ FIORE CNM Re06/09/23 Status: [facility] Disch: ----- ------- SPEC : [id number] RECD: 06/10/23 STATUS: MICA LINDA NUM: [id number] JEFFREY: 06/09/[address] [facility] [address]: LIZ FIORE CNM ENTERED: 06/10/23-1019 SP TYPE: Pap [facility] : ORDERED: Pap Smear, PAP path review Interpretation [...] ------- END OF REPORT us Liz Fiore [facility] CYTOLOGY ORDERABLES F inal Result [facility] [address] [place] [phone] * (ABNORMAL) HPV mRNA E6/E7 w/Reflex to HPV Genotypes 16, 18/45 (04/14/2023 12:52 PM EDT) HPV nRNA E6/E7 Detected(A ) Not Detected [facility] Comment:Methodology: Transcr iption-Mediated AmplificationThis assay detects E6/E7 viral messenger RNA (mRNA) from 14high-risk HPV types (16,18,31,33,35,39,45,51,52,56,58,59,66,68).Cervical sources are required for HPV testing.If a vaginal source from a patient who has had atotal hysterectomy with removal of cervix wassubmitted, please contact the testing laboratoryfor alternative testing options.For additional information, please refer tohttp://education.Traity/faq/DAE138i9(This link if provided for information/educational purposes only.)THIS TEST WAS PERFORMED AT:[employer] [address] [id number] LIZARRAGA MD HPV 16 RNA NOT DETECTED NOT DETECTED [facility] HPV 18/45 RNA NOT DETECTED NOT DETECTED [facility] Comment:Methodology: Transcr iption Mediated AmplificationCervical sources are required for HPV testing.If a vaginal source from a patient who has had atotal hysterectomy with removal of cervix wassubmitted, please contact the testing laboratoryfor alternative testing options.THIS TEST WAS PERFORMED AT:[employer] [place] [address]BMQBCLIONEL LIZARRAGA MD 04/14/2023 12:5 2 PM EDT 04/15/2023 12:00 PM EDT Liz Fiore [facility] CYTOLOGY ORDERABLES F inal Result [facility] [address] [place] [address] [phone] from Last 3 Months or Most Recently Relevant to Health Maintenance Insurance MEDICARE [facility] Care Teams Marble Polisher Relationship Specialty Start Date End Date Ignacia Gillespie MD [address] [place] [phone] PCP - General Internal Medicine 01/19/23
[2025-07-10 12:51] LABS: Microalbum/Creatinine Ratio Ur 16.4 ug/mg cr (<30)
== END 2025-07-10 09:00 | disposition home or self-care (01) ==
LOC: HO.HHCLNP 08:59
PROVIDERS: PCP Student in an Organized Health Care Education/Training Program; Visit Provider Student in an Organized Health Care Education/Training Program
DX: I10 Essential (primary) hypertension (principal)
CPT/HCPCS: 82043; 82570